=== PATIENT | male | born 1970 | race Asian ===

== ENCOUNTER 2018-04-04 16:23 | Emergency (ER) | payer OTHER ==
[~2018-04-04] VITALS: Ht 165.1 cm; Wt 82.6 kg
[2018-04-04 17:10] LABS: APPEARANCE CLEAR ((CLEAR)); BILIRUBIN NEGATIVE; BLOOD SMALL; COLOR YELLOW ((YELLOW)); GLUCOSE (STRIP) 50; KETONES NEGATIVE; LEUKOCYTES NEGATIVE; NITRITE NEGATIVE; PROTEIN (STRIP) 30; SPECIFIC GRAVITY 1.016 (1.000-1.030); UROBILINOGEN 0.2 MG/DL (0.2-1.0)
[2018-04-04 17:14] LABS: HEMATOCRIT 40.5 % (38.0-50.0); HEMOGLOBIN 13.7 G/DL (12.5-16.6); MCH 30.7 PG (29.0-34.0); MCHC 33.8 G/DL (30.0-36.0); MCV 90.8 FL (86-99); PLATELET COUNT 183 K/uL (156-360); RBC DIS.WIDTH-CV 11.2 % (11.8-14.6); RBC DIS.WIDTH-SD 37.6 % (39-53); RED BLOOD COUNT 4.46 M/uL (4.00-5.50); WHITE BLOOD COUNT 4.1 K/uL (4.1-10.2)
[2018-04-04 17:15] LABS: BACTERIA NONE SEEN /HPF; EPITHELIAL CELLS NONE SEEN /HPF; MUCUS NONE SEEN /LPF; RED BLOOD CELLS 0-5 /HPF (0-5); UCUL ADDED? NO; WHITE BLOOD CELLS 0-5 /HPF (0-5)
[2018-04-04 17:22] LABS: ALBUMIN 4.4 g/dL (3.2-4.8); CHLORIDE 102 mEq/L (99-109); POTASSIUM 3.8 mEq/L (3.7-5.4); SODIUM 134 mEq/L (136-147)
[2018-04-04 17:24] LABS: GLUCOSE 137 mg/dL (70-99)
[2018-04-04 17:25] LABS: TOTAL PROTEIN 7.4 g/dL (6.4-8.3)
[2018-04-04 17:26] LABS: TOTAL BILIRUBIN 0.4 mg/dL (0.0-1.0)
[2018-04-04 17:28] LABS: ALKALINE PHOSPHATASE 103 IU/L (3-129); CREATININE 0.8 mg/dL (0.6-1.3)
[2018-04-04 17:29] LABS: UREA NITROGEN (BUN) 11 mg/dL (9-23)
[2018-04-04 17:30] LABS: AST (GOT) 90 IU/L (2-34); GFR ESTIMATE (CALCULATED) > 59 mL/min/ (58.99-99999)
[2018-04-04 17:31] LABS: ALT (GPT) 145 IU/L (3-49)
[2018-04-04 17:52] LABS: ABS NEUTROPHIL COUNT 2.4; ATYPICAL LYMPHOCYTE 13.9 %; BAND NEUTROPHILS 2.6 % (0-8.0); BASOPHILS 0.9 %; EOSINOPHIL ABS CT 0; LYMPHOCYTES 18.2 % (15.0-45.0); MONOCYTES 9.6 % (0-9.0); SEG.NEUTROPHILS 54.8 % (46.0-76.0)
[2018-04-04 18:18] LABS: MONOSPOT (MONONUCLEOSIS SEROL) NEGATIVE
[2018-04-04] MEDS ORDERED: ZITHROMAX Z-PA250 MG PO (19:51)
[2018-04-04 20:02] VITALS: BP 169/91
== END 2018-04-04 20:04 | disposition home or self-care (01) ==
LOC: EME 16:23
PROVIDERS: Physician Assistant Medical
DX: R50.9 Fever, unspecified (principal); I10 Essential (primary) hypertension; E11.9 Type 2 diabetes mellitus without complications
CPT/HCPCS: 71046; 80053; 81003; 83605; 85025; 86308; 87040; 87502; 99281; 99284; J7030